=== PATIENT | female | born 1980 | race Caucasian/White ===

== ENCOUNTER 2017-07-30 12:13 | Outpatient (CLI) | payer OTHER ==
[2017-07-30] MEDS ORDERED: Gadobenate Dimeglumine 529 MG/1 ML (20ML VIAL) ONE (15:20)
== END 2017-07-30 12:14 | disposition home or self-care (01) ==
LOC: BICMRI 12:13
PROVIDERS: ATTEND Internal Medicine Hematology & Oncology
DX: C71.9 Malignant neoplasm of brain, unspecified (principal); G40.89 Other seizures; Z98.890 Other specified postprocedural states
CPT/HCPCS: 70553; A9579

== ENCOUNTER 2017-11-26 09:38 | Outpatient (CLI) | payer OTHER ==
[2017-11-26] MEDS ORDERED: Gadobenate Dimeglumine 529 MG/1 ML (20ML VIAL) ONE (14:57)
== END 2017-11-26 09:39 | disposition home or self-care (01) ==
LOC: BICMRI 09:38
PROVIDERS: ATTEND Internal Medicine Hematology & Oncology
DX: C71.9 Malignant neoplasm of brain, unspecified (principal); G40.89 Other seizures
CPT/HCPCS: 70553; A9579

== ENCOUNTER 2018-04-01 09:44 | Outpatient (CLI) | payer OTHER ==
[2018-04-01] MEDS ORDERED: Gadobenate Dimeglumine 529 MG/1 ML (20ML VIAL) ONE (12:06)
--- NOTE | 2018-04-01 16:25 | MRI ---
BRAIN MRI WITH AND WITHOUT CONTRAST: INDICATIONS: Brain neoplasm, anaplastic glioma. COMPARISON: Brain MRI from 09/16/[address] from 01/01/2017. FINDINGS: There is no evidence of acute territorial infarction. Stable ex vacuo dilatation centered at the lef t frontal horn is again seen, related to adjacent post surgical encephalomalacia of the left frontal lobe. No new enhancement at the operative site is seen. No new intraaxial mass effect. Postoperati ve hemosiderin deposition of the left frontal region is present, with overlying craniotomy and bur ho le. IMPRESSION: Postoperative brain MRI, without interval development of pathologic intraaxial enhancement. POS: [facility]
== END 2018-04-01 09:45 | disposition home or self-care (01) ==
LOC: BICMRI 09:44
PROVIDERS: ATTEND Internal Medicine Hematology & Oncology
DX: G40.89 Other seizures (principal); C71.9 Malignant neoplasm of brain, unspecified
CPT/HCPCS: 70553; A9579

== ENCOUNTER 2018-09-30 09:51 | Outpatient (CLI) | payer OTHER ==
[~2018-09-30 09:51] MED LIST: Gadobenate Dimeglumine 529 MG/1 ML (20ML VIAL) ONE
--- NOTE | 2018-09-30 11:22 | MRI ---
Brain MRI with and without contrast: 09/30/2018 COMPARISON: 04/01/2018, 11/26/2017, 07/30/2017, and 04/02/2017 HISTORY: Anaplastic glioma. Multiplanar and multisequence MR imaging of the brain obtained with and without contrast FINDINGS: The diffusion weighted imaging demonstrates no evidence for acute infarction. The axial gradient echo imaging demonstrates a few foci of blooming artifact in the left frontal eulalia on associated with prior tumor resection, unchanged when compared to the prior studies. There is evidence of prior left frontal craniotomy with a stable post surgical cavity within the anterior supe rior aspect of the left frontal lobe. No midline shift or mass effect is evident on this examination. Arterial flow voids at the axial level of the skull base appear unremarkable on the T2-weighted imagi ng. Imaged paranasal sinuses and mastoid air cells appear grossly unremarkable. Stable increased T2 and FLAIR signal noted within the periventricular, deep, and subcortical white ma tter of bilateral frontal lobes, left greater than right. In addition, there is a small new focus of increased T2 and FLAIR signal measuring 8 mm within the subcortical white matter of the posterior left frontal lobe on axial image 17. Significance of this finding is uncertain. No abnormal enhancement is appreciated in this region. No intra-axial enhancement is appreciated on this exam. IMPRESSION: Postoperative changes as detailed above. New subcentimeter focus of increased T2 and FLAI R signal within the subcortical white matter of the left frontal lobe posteriorly without enhancement. This could be associated with small vessel disease. Early neoplastic disease cannot be e xcluded. Close follow-up imaging is thus advised. Transcribed Date/Time: 09/30/2018 11:31 AM
== END 2018-09-30 09:52 | disposition home or self-care (01) ==
LOC: BICMRI 09:51
PROVIDERS: ATTEND Internal Medicine Hematology & Oncology
DX: C71.9 Malignant neoplasm of brain, unspecified (principal); G40.89 Other seizures; Z98.890 Other specified postprocedural states
CPT/HCPCS: 70553; A9577

== ENCOUNTER 2018-11-26 09:43 | Outpatient (CLI) | payer OTHER ==
--- NOTE | 2018-11-26 11:18 | MRI ---
Brain MRI with and without contrast: 11/26/2018 COMPARISON: Numerous prior brain MRI examinations, most recent dated 09/30/2018 HISTORY: Anaplastic glioma status post surgical resection. The most recent prior examination demonstr ated a focal area of increased signal intensity within the white matter of the left frontal lobe posteriorly. TECHNIQUE: Multiplanar and multisequence MR imaging of the brain is obtained with and without contras t FINDINGS: The most recent prior examination demonstrated a new 8 mm focus of increased signal intensi ty on the FLAIR imaging within the posterior left frontal white matter with no evidence for enhancement. On this examination, that focus of increased FLAIR signal is again seen, is stable in si ze, measuring approximately 9 mm, and again demonstrates no evidence for enhancement. The diffusion weighted imaging demonstrates no evidence for restricted diffusion to suggest the presence of acute i nfarction. The axial gradient echo imaging demonstrates a stable focus of blooming artifact within the posterior medial aspect of the left frontal postsurgical cavity most consistent with stable postoperative change. Left frontal craniotomy and left frontal postsurgical cavity appears unchanged when compared to the prior examinations. No midline shift or mass effect is noted. The postcontrast imaging demonstrates stable dural enhancement and thickening deep to the craniotomy defect. No discrete new focus of intra-axial enhancement is identified on this exam. There is a tiny focus of enhancement along the inferior margin of the postoperative cavity measuring 4 mm, as seen on multiple prior examinations. IMPRESSION: Stable postoperative cavity in the left frontal region consistent with the patient's hist ory of surgical resection of anaplastic glioma. The area of nonenhancing increased FLAIR signal noted on the prior examination within the posterior left frontal lobe is stable. Continued follow-up imaging is advised. No new enhancement mass effect or evidence of edema seen. Transcribed Date/Time: 11/26/2018 1:02 PM
== END 2018-11-26 09:44 | disposition home or self-care (01) ==
LOC: BICMRI 09:43
PROVIDERS: ATTEND Internal Medicine Hematology & Oncology
DX: C71.9 Malignant neoplasm of brain, unspecified (principal); G40.89 Other seizures; Z98.890 Other specified postprocedural states
CPT/HCPCS: 70553

== ENCOUNTER 2019-03-05 09:20 | Outpatient (CLI) | payer OTHER ==
--- NOTE | 2019-03-05 12:37 | MRI ---
MRI BRAIN WITH AND WITHOUT CONTRAST: INDICATIONS: Follow up glioblastoma excision. COMPARISON: MRI brain from 11/26/2018. FINDINGS: Postoperative changes left frontal lobe again noted. Increased FLAIR signal is seen at the operative site and in the periventricular white matter. Small cavitary focus in the left frontal lobe just infe rior to the operative defect is stable. There are scattered white matter hyperintensities seen on FLAIR sequence, which have been described p reviously. The most prominent is a focus seen in the posterior left frontal lobe white matter. This l esion is compared to a prior exam from 11/26/2018 and 09/30/2018. It is slightly more prominent today , measuring approximately 1.2 cm, where it previously measured approximately 1 cm. In addition there is a subcortical focus of signal intensity in the right frontal lobe, which is slig htly more prominent today when compared to the prior studies. There are other scattered tiny intensities which are stable. Review of post contrast study shows no abnormal enhancement involving any of these white matter lesio ns. There is no abnormal enhancement at the operative site. No other interval change noted. IMPRESSION: White matter intensities seen on FLAIR sequence are slightly more prominent today, as described above . No abnormal enhancement. No other change when compared to prior study. POS: [facility]
== END 2019-03-05 09:21 | disposition home or self-care (01) ==
LOC: BICMRI 09:20 → TBSIIMAG 09:21
PROVIDERS: ATTEND Internal Medicine Hematology & Oncology
DX: C71.9 Malignant neoplasm of brain, unspecified (principal)
CPT/HCPCS: 70553

== ENCOUNTER 2019-07-01 09:37 | Outpatient (CLI) | payer OTHER ==
[2019-07-01] MEDS ORDERED: Magnevist 469MG/ML 20 ML VIAL ONE (14:28)
--- NOTE | 2019-07-01 14:50 | MRI ---
BRAIN MRI WITH AND WITHOUT CONTRAST: HISTORY: Anaplastic glioma the brain. COMPARISON: 03/05/2019, 11/26/2018, 09/30/2018 FINDINGS: Gradient echo sequence: Stable posttreatment hemorrhage/hemosiderin deposition. No new areas of paren chymal hemorrhage. Calvarium: Appropriate T1 marrow signal intensity. Midline brain parenchyma: Unremarkable. Cerebrum:Stable posttreatment changes in the left frontal lobe. There is encephalomalacia and gliosis . The remainder of the cerebrum demonstrates preservation of cortical tesfaye-white matter differentiation. Previously noted T2 hyperintensity in the left licona radiata and right temporal sub cortical white matter are slightly less evident but still present in the left licona radiata. The T2 hyperintensity along the left licona radiata currently measures 1.0 x 0.5 cm. The hyperintensity a long the right temporal subcortical white matter measures 0.6 x 0.6 cm. Ventricles: Stable ex vacuo dilatation of the frontal horn of the left lateral ventricle. Sinuses and mastoid air cells: Adequate aeration. Diffusion: Central arterial flow is maintained. Absent restricted diffusion. Postcontrast images:No pathologic enhancement the brain parenchyma. Stable linear enhancement at the surgical site, compatible with scar. Stable dural enhancement underneath a left calvarial craniotomy defect, likely representing postsurgical change. IMPRESSION: 1. No pathologic enhancement of the brain parenchyma. 2. Stable postoperative changes. 3. Previously noted white matter hyperintensities in the left licona radiata and right frontal subcor tical white matter are redemonstrated but appear to be less evident in the left licona radiata and stable in the right frontal subcortical white matter. The left licona radiata hyperintensity currentl y measures 1.0 x 0.5 cm. Previously, this lesion measured 1.2 x 0.8 cm. The right temporal subcortical lesion currently measures 0.6 x 0.5 cm. Previously, this lesion measured 0.6 x 0.5 cm. Results of study discussed with Dr. Caba 07/01/2019 at 2:49 PM. Code CR Transcribed Date/Time: 07/01/2019 3:00 PM
== END 2019-07-01 09:38 | disposition home or self-care (01) ==
LOC: TBSIIMAG 09:37
PROVIDERS: ATTEND Internal Medicine Hematology & Oncology
DX: C71.9 Malignant neoplasm of brain, unspecified (principal); Z98.890 Other specified postprocedural states
CPT/HCPCS: 70553; A9579